=== PATIENT | female | born 1955 | race Caucasian/White ===

== ENCOUNTER 2024-07-31 19:30 | Emergency (ER) | payer MEDICARE ==
[~2024-07-31] VITALS: Ht 167.6 cm; Wt 72.1 kg
[2024-07-31] MEDS ORDERED: BACTRIM DS TAB1 EACH PO (22:09)
[2024-07-31 22:15] VITALS: PULSE 80; RESP 18; TEMP 97.9
[2024-07-31 23:12] VITALS: BP 156/69; O2SAT 100
== END 2024-07-31 22:20 | disposition home or self-care (01) ==
LOC: FSED 19:35
DX: M79.672 Pain in left foot (principal); L03.116 Cellulitis of left lower limb; M25.472 Effusion, left ankle; E78.5 Hyperlipidemia, unspecified; E78.00 Pure hypercholesterolemia, unspecified
CPT/HCPCS: 93970; 93971; 99284